=== PATIENT | female | born 1965 | race Caucasian/White ===

== ENCOUNTER 2016-08-20 12:12 | Inpatient (IN) | payer BC ==
[~2016-08-20] VITALS: Ht 154.9 cm; Wt 76.1 kg
[~2016-08-20 12:12] MED LIST: BACTRIM DS DPS1 TAB PO; FARXIGA5 MG PO; GLUCOPHAGE1000 MG PO; KEFLEX-DPS500 MG PO; LEVEMIR100 UNIT/1 SQ; MARYS PO; PERCOCET 5 DPS1 TAB PO; SYNTHROID25 MCG PO; TYLENOL #3 DPS1 TAB PO
[2016-08-25] MEDS ORDERED: ZOVIRAX5 GM TP (10:37)
[2016-08-25] MEDS ORDERED: MOTRIN-DPS600 MG PO (10:38)
[2016-08-25] MEDS ORDERED: TYLENOL DPS325 MG PO (10:38)
[2016-08-25] MEDS ORDERED: HYDROCODONE 5MG/5 MG PO (10:38)
[2016-08-25] MEDS ORDERED: MONISTAT VG (10:39)
[2016-08-25] MEDS ORDERED: LEVAQUIN DPS750 MG PO (10:39)
--- NOTE | 2016-08-27 12:52 | DS ---
ADMIT: 08/20/2016 RM/LOC: [facility] MR#: [id number] [id number] [place], [place] [address] AMARI GUARDADO [address] [place] [id number] Discharge Summary SEX: F AGE: 51 : 1965 ADMISSION DATE: 08/20/2016 DISCHARGE DATE: 08/24/2016 FINAL DIAGNOSES: 1. Right pyelonephritis. 2. Bacteremia with E. coli (Escherichia coli). 3. Diabetes type 2, uncomplicated. 4. Hypothyroidism. 5. Chronic degenerative joint disease with knee pain. HOSPITAL COURSE: Amari came to the clinic on 08/20/2016 with fever, body aches, nausea, and urinary frequency. Urinalysis showed pyuria. She had also just finished a course of Tamiflu for influenza, which was diagnosed on about August 10. She had misunderstood had to take the medicine and was only taking one pill daily. In any case, the flank pain and fevers were a new symptom that started fairly abruptly on the . She was admitted, started on IV Rocephin and Levaquin after blood cultures were drawn. I continued her usual home medicines as well. We checked labs for sepsis workup and the lactic acid and Procalcitonin were both negative. However, her blood cultures started growing bacteria that was identified as E. coli. Urinalysis in the office had a culture also showing the same E. coli. Her antibiotic coverage was tightened by stopping the Levaquin and continuing Rocephin since the strain was sensitive to both. She still had fever intermittently until the evening of 08/22/2016. After that, she had no more temperatures over 99. She is eating well this morning, has no nausea. She said she feels a little bit of burning when she urinates, but it is also with some itching. She has no vaginal discharge. 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 She has acyclovir cream to treat that and it is healing. She will be dismissed home with followup in about ten days. At followup, we will get a CBC, BMP, and a complete UA and in the meantime, she will finish out a course of Levaquin. I discussed this with her via landing scaler and stressed the importance of taking the Levaquin every day until the medicine is gone and not just until her symptoms are gone. She will also continue her treatment for her diabetes and hypothyroidism. I gave her hydrocodone #15 because of her body aches and back ache. Again, medicines on discharge are: 1. Glucophage 1000 b.i.d. 2. Synthroid 0.025 mg daily. 3. Levemir 55 units at bedtime. 4. Acyclovir cream apply about five times a day to the sores on her upper lip until they are healed. 5. I also wrote a prescription for hydrocodone 5/325, #15. 6. She will take Motrin over the counter 600 mg and can take every 6 hours if needed. ADMIT: 08/20/2016 RM/LOC: [address] [facility] MR#: [id number] [facility] [address] [address] MICHELOSCAR GARVEYYASMEEN KLAR[address]SA [address] [address] Discharge Summary SEX: F AGE: 51 : 1965 7. She can also take [id number] Tylenol. 8. She will take Levaquin 750 mg daily through 08/29/2016. 9. She already had Rocephin this morning. We will have her start her Levaquin when she gets home. 10.I wrote for miconazole or Monistat vaginal cream. If it is not covered by insurance, she can pick that up [id number]. She was given a note for work excusing her from her hospital stay and until August 29. She can return on that date, the . If she runs fevers, has nausea, or any troubles at all, she needs to call our office immediately. She voiced understanding. I used the landing scaler service here in our hospital to discuss this all with the patient. Approximately 30 minutes were spent with dismissal and greater than 50% of that time was with the patient answering questions, and doing exam. Dania Amin MD/ niki JOB #: [id number] CC: Dania Amin MD, Attending Physician Dania Amin MD, Family Physician
--- NOTE | 2016-09-07 08:02 | HP ---
ADMIT: 08/20/2016 RM/LOC: [address] [facility] MR#: [id number] [address] [address] AMARI GUARDADO [address] [place] [address] History and Physical SEX: F AGE: 51 : 1965 DATE OF SERVICE: 08/20/2016 CHIEF COMPLAINT: Right flank pain and dysuria. HISTORY OF PRESENT ILLNESS: Amari is a 51-year-old woman who presented to clinic today with right flank pain and dysuria. She also noticed that her home glucose readings had been elevated over the last few days. About 10 days ago, she was diagnosed with influenza. At that time, she was started on Tamiflu. Her symptoms initially improved, but she continued to have persistent fatigue. Then, a couple of days ago, she noticed she had pain with urination and began to have right flank pain. She also had increased fever and some chills. With these new symptoms, she decided to come into clinic to get this treated. In clinic, UA showed signs of infection. At this time, the decision was made to admit her to the hospital. 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 PAST SURGICAL HISTORY: Significant for left total knee arthroplasty. FAMILY HISTORY: Significant for diabetes mellitus, hypertension, and hyperlipidemia. SOCIAL HISTORY: Amari is single. She denies any alcohol or smoking history. She works at [employer]. MEDICATIONS: 1. Ciprofloxacin 500 mg. 2. ProAir. 3. Promethazine 15 mg. 4. Collagen and vitamin supplement. 5. Glucosamine and chondroitin. 6. Levothyroxine 25 mcg. 7. Meloxicam 15 mg. 8. Metformin 1000. 9. Toujeo 300 units. 10.Tylenol 325 mg. ALLERGIES: SHE HAS ALLERGY TO FARXIGA. REVIEW OF SYSTEMS: A 10-point of review of systems was obtained and is otherwise negative except were noted in the HPI. PHYSICAL EXAMINATION: GENERAL: The patient is alert and oriented x3, in some distress. HEENT: Head is normocephalic and atraumatic. No lymphadenopathy. Lips and nose have a vesicular rash. HEART: Regular rate and rhythm, no murmurs. ADMIT: 08/20/2016 RM/LOC: [address] [facility] MR#: [id number] [address] [address] AMARI GUARDADO [address] [place] [address] History and Physical SEX: F AGE: 51 : 1965 LUNGS: Clear to auscultation bilaterally, no wheezes or rales. ABDOMEN: Abdomen is soft, nontender. No masses or hepatosplenomegaly. She does have right CVA tenderness. EXTREMITIES: Trace edema bilaterally. LABORATORY DATA: UA in the office showed increased white count and bacteria. Chest x-ray showed scattered bronchial wall thickening, possible bronchitis. ASSESSMENT: Amari Rivera is a 51-year-old female with past medical history of deep venous thrombosis, type 2 diabetes, hypothyroidism, and gastroesophageal reflux disease, who presented today with right flank pain and dysuria, who was found to have probable pyelonephritis. 1. Pyelonephritis. 2. Viral outbreak on lips and nose. 3. Diabetes mellitus type 2. 4. Hypothyroidism. PLAN: We will admit to the hospital due to pyelonephritis. She should get routine telemetry and close monitoring of I and O. Diet is clear liquids. We will give her 2 L IV normal saline bolus and then switch her to IV normal saline at a rate of 125 mL/hr with 10 mEq of potassium chloride. We will get lactic acid, procalcitonin, and blood cultures x2. We will start her on Rocephin 2 g IV and then switch to 1 g IV every 12 hours. We will also start her on Levaquin 500 mg IV every 24 hours. Accu-Chek a.c. and at bedtime with low-dose Humalog SSI. She should also get levothyroxine 25 mcg; acyclovir ointment to the rash on her face, on her lips and nose five times per day; Zofran IV 8 mg every 4 hours p.r.n.; morphine 1 mg IV p.r.n. for pain; Lortab 325 mg p.o. every 4 hours for pain. Kendell Swanson, M3 Student / Dania Amin MD / josé miguel JOB #: [id number] CC: Dania Amin, Attending Physician Dania Amin, Family Physician
== END 2016-08-24 10:55 | disposition home or self-care (01) | DRG 872 ==
LOC: 4PCU 12:12
PROVIDERS: ADMIT Family Medicine
DX: A41.51 Sepsis due to Escherichia coli [E. coli] (principal); N12 Tubulo-interstitial nephritis, not specified as acute or chronic; E03.9 Hypothyroidism, unspecified; E11.9 Type 2 diabetes mellitus without complications; B00.1 Herpesviral vesicular dermatitis; K21.9 Gastro-esophageal reflux disease without esophagitis; E78.5 Hyperlipidemia, unspecified; M19.90 Unspecified osteoarthritis, unspecified site; Z79.84 Long term (current) use of oral hypoglycemic drugs; Z86.718 Personal history of other venous thrombosis and embolism

== ENCOUNTER → 2016-10-18 | Outpatient (CLI) | payer BC ==
[~2016-10-18] MED LIST changes: +HYDROCODONE 5MG/5 MG PO; +LEVAQUIN DPS750 MG PO; +MONISTAT VG; +MOTRIN-DPS600 MG PO; +TYLENOL DPS325 MG PO; +ZOVIRAX5 GM TP
== END | disposition home or self-care (01) ==
LOC: RAD.S 11:08
DX: Z12.31 Encounter for screening mammogram for malignant neoplasm of breast (principal)